=== PATIENT | male | born 2000 | race Two or more races ===

== ENCOUNTER 2023-09-10 16:47 | Inpatient (IN) | payer SELFPAY ==
[~2023-09-10] VITALS: Ht 170.2 cm; Wt 72.3 kg
[2023-09-10 18:19] LABS: Basophils # (auto) 0 10 ^3/uL (0-0.2); Basophils % (auto) 0.3 % (0.0-2.0); Eosinophils # (auto) 0.1 10 ^3/uL (0-0.8); Eosinophils % (auto) 0.7 % (0.0-7.0); Hematocrit 45.8 % (41.0-53.0); Hemoglobin 15.2 g/dL (13.5-17.5); Lymphocytes # (auto) 1.5 10 ^3/uL (0.4-5.4); Lymphocytes % (auto) 11.7 % (10.0-50.0); Mean Corpuscular Hemoglobin 28.4 pg (28.0-32.0); Mean Corpuscular Hgb Conc. 33.2 g/dL (32.0-36.0); Mean Corpuscular Volume 85.6 fL (80.0-100.0); Monocytes # (auto) 1.1 10 ^3/uL (0-1.3); Monocytes % (auto) 9.1 % (0.0-12.0); Neutrophils # (auto) 9.8 10 ^3/uL (1.6-8.6); Neutrophils % (auto) 78.2 % (37.0-80.0); Red Blood Cells 5.35 10^6/uL (4.5-5.90); Red Cell Distribution Width 14.1 % (11.8-14.3); White Blood Cell 12.5 10^3/uL (4.4-10.8)
[2023-09-10 18:33] LABS: CRP High Sensitivity 0.17 mg/dL (<1.0)
[2023-09-10 18:35] LABS: Alanine Aminotransferase 72 U/L (7-40); Albumin 4.9 g/dL (3.2-4.8); Alkaline Phosphatase 110 U/L (46-116); Anion Gap 7 (5-15); Aspartate Aminotransferase 29 U/L (13-40); BUN/Creatinine Ratio 9.7 (10.0-20.0); Bilirubin, Total 0.3 mg/dL (0.2-1.0); Blood Urea Nitrogen 12 mg/dL (9-23); Calcium 10.1 mg/dL (8.5-10.1); Carbon Dioxide 29 mmol/L (20-30); Chloride 106 mmol/L (98-107); Glucose 113 mg/dL (74-106); Potassium 3.9 mmol/L (3.5-5.1); Sodium 142 mmol/L (136-145); Total Protein 7.2 g/dL (5.7-8.2)
[2023-09-10] MEDS ORDERED: SODIUM CHLORIDE 0.9% 1,000 ML IV ONE (19:00)
[2023-09-10] MEDS ORDERED: fentaNYL CITRATE 100 MCG/2 ML VL IV ONE (19:30)
[2023-09-10] MEDS ORDERED: TAMSULOSIN HYDROCHLORIDE 0.4 MG CAP PO ONE ×2 (19:30→21:38)
[2023-09-10] MEDS ORDERED: cefTRIAXone 1GM/50ML D5W 50 ML IV ONE ×2 (19:30→21:38)
[2023-09-10 20:16] LABS: Urine Bacteria FEW /hpf (None Seen); Urine Blood 1+ /uL (Negative); Urine Clarity HAZY (Clear); Urine Color Yellow (Yellow); Urine Protein, UAD TRACE (Negative); Urine Specific Gravity 1.027 (1.001-1.035); Urine Urobilinogen Normal (Negative); Urine WBC 9 /hpf (0 - 3)
[2023-09-10 20:24] LABS: Amphetamine Screen, Urine Neg (NEGATIVE); Barbiturate Scree,Urine Neg (NEGATIVE); Benzodiazephine Screen, Urine Neg (NEGATIVE); Cocaine Screen, Urine Neg (NEGATIVE)
[2023-09-10 20:25] LABS: Cannabinoid Screen, Urine Neg (NEGATIVE); Opiate Scree,Urine Neg (NEGATIVE); Phencyclidine Screen, Urine Neg (NEGATIVE)
[2023-09-10 21:27] VITALS: PULSE 64; RESP 20; O2SAT 100
[2023-09-10] MEDS ORDERED: ONDANSETRON HCL 4 MG/2 ML VIAL ONE (21:40)
[2023-09-10] MEDS ORDERED: fentaNYL CITRATE 100 MCG/2 ML VL ONE (21:40)
[2023-09-10] MEDS ORDERED: ONDANSETRON HCL 4 MG/2 ML VIAL IV ONE (21:45)
[2023-09-10] MEDS ORDERED: KETOROLAC TROMETH 30 MG/ML 1ML VIAL IV ONE (22:00)
[2023-09-10] MEDS ORDERED: ACETAMINOPHEN 325 MG TAB PO PRN (22:45)
[2023-09-10] MEDS ORDERED: DOCUSATE SOD 100 MG CAP PO PRN (22:45)
[2023-09-10] MEDS ORDERED: KETOROLAC TROMETH 30 MG/ML 1ML VIAL ONE (22:45)
[2023-09-10] MEDS ORDERED: HYDROcodone-ACET 5/325MG TAB PO PRN (22:45)
[2023-09-10] MEDS ORDERED: ONDANSETRON HCL 4 MG/2 ML VIAL IV PRN (22:45)
[2023-09-10] MEDS ORDERED: MORPHINE SULFATE INJ 2 MG/ml SYRG IV PRN (22:45)
[2023-09-11] VITALS (7 sets, daily range): BP systolic 107–116; BP diastolic 57–65; PULSE 78–95; RESP 16–24; TEMP 97.7–98.4; O2SAT 96–100
[2023-09-11] MEDS ORDERED: HYDROcodone-ACET 5/325MG TAB ONE (02:09)
[2023-09-11] MEDS: SODIUM CHLOR 0.9% PF (SALINE LOCK) 10ML VIAL/SYR IV SCH ×3 (06:01→22:00)
[2023-09-11] MEDS: TAMSULOSIN HYDROCHLORIDE 0.4 MG CAP PO SCH (10:20)
[2023-09-11 11:33] LABS: Basophils # (auto) 0 10 ^3/uL (0-0.2); Basophils % (auto) 0.4 % (0.0-2.0); Eosinophils # (auto) 0.1 10 ^3/uL (0-0.8); Eosinophils % (auto) 0.8 % (0.0-7.0); Hematocrit 43.2 % (41.0-53.0); Hemoglobin 14.5 g/dL (13.5-17.5); Lymphocytes # (auto) 1.8 10 ^3/uL (0.4-5.4); Mean Corpuscular Hemoglobin 28.6 pg (28.0-32.0); Mean Corpuscular Hgb Conc. 33.6 g/dL (32.0-36.0); Mean Corpuscular Volume 85.3 fL (80.0-100.0); Monocytes % (auto) 14.5 % (0.0-12.0); Neutrophils # (auto) 4.2 10 ^3/uL (1.6-8.6); Neutrophils % (auto) 59.3 % (37.0-80.0); Nucleated Red Blood Cells % 0.1 %; Red Blood Cells 5.07 10^6/uL (4.5-5.90)
[2023-09-11] MEDS: cefTRIAXone 1GM/50ML D5W 50 ML IV SCH (11:35)
[2023-09-11 11:55] LABS: Chloride 107 mmol/L (98-107); Potassium 3.6 mmol/L (3.5-5.1); Sodium 142 mmol/L (136-145)
[2023-09-11 11:56] LABS: Anion Gap 6 (5-15); Carbon Dioxide 29 mmol/L (20-30)
[2023-09-11 11:57] LABS: Calcium 9.6 mg/dL (8.5-10.1)
[2023-09-11 12:01] LABS: Glucose 89 mg/dL (74-106); Triglycerides 72 mg/dL (< 150)
[2023-09-11 12:02] LABS: Blood Urea Nitrogen 10 mg/dL (9-23); LDL Cholesterol 68 mg/dL (< 100)
[2023-09-11 12:03] LABS: Cholesterol 121 mg/dL (< 200); HDL Cholesterol 48 mg/dL (40-59)
[2023-09-11] MEDS: SODIUM CHLORIDE 0.9% 1,000 ML IV SCH (19:00)
[2023-09-12 05:43] VITALS: BP 110/65; PULSE 79; RESP 17; TEMP 98.3; O2SAT 99
[2023-09-12] MEDS: SODIUM CHLOR 0.9% PF (SALINE LOCK) 10ML VIAL/SYR IV SCH ×3 (06:25→22:00)
[2023-09-12 07:26] LABS: Basophils # (auto) 0 10 ^3/uL (0-0.2); Basophils % (auto) 0.6 % (0.0-2.0); Eosinophils # (auto) 0 10 ^3/uL (0-0.8); Eosinophils % (auto) 0.6 % (0.0-7.0); Hematocrit 41.7 % (41.0-53.0); Lymphocytes # (auto) 1.1 10 ^3/uL (0.4-5.4); Lymphocytes % (auto) 14.3 % (10.0-50.0); Mean Corpuscular Hemoglobin 28.7 pg (28.0-32.0); Mean Corpuscular Hgb Conc. 33.6 g/dL (32.0-36.0); Mean Corpuscular Volume 85.4 fL (80.0-100.0); Monocytes # (auto) 0.7 10 ^3/uL (0-1.3); Monocytes % (auto) 9.5 % (0.0-12.0); Neutrophils # (auto) 5.8 10 ^3/uL (1.6-8.6); Red Blood Cells 4.89 10^6/uL (4.5-5.90); Red Cell Distribution Width 14.2 % (11.8-14.3); White Blood Cell 7.8 10^3/uL (4.4-10.8)
[2023-09-12 07:40] LABS: Chloride 109 mmol/L (98-107); Potassium 4.4 mmol/L (3.5-5.1); Sodium 143 mmol/L (136-145)
[2023-09-12 07:41] LABS: Anion Gap 8 (5-15); Calcium 9.5 mg/dL (8.5-10.1); Carbon Dioxide 26 mmol/L (20-30)
[2023-09-12 07:46] LABS: BUN/Creatinine Ratio 13.3 (10.0-20.0); Blood Urea Nitrogen 11 mg/dL (9-23); Glucose 81 mg/dL (74-106)
[2023-09-12] MEDS: SODIUM CHLORIDE 0.9% 1,000 ML IV SCH (07:50)
[2023-09-12 08:30] VITALS: BP 112/67; PULSE 86; RESP 16; TEMP 98
[2023-09-12] MEDS ORDERED: cefTRIAXone 1GM/50ML D5W 50 ML IV ONE (08:52)
[2023-09-12 09:00] VITALS: BP 112/67; PULSE 86; RESP 16; TEMP 98; O2SAT 100
[2023-09-12] MEDS: cefTRIAXone 1GM/50ML D5W 50 ML IV SCH (09:09)
[2023-09-12] MEDS ORDERED: TAMSULOSIN HYDROCHLORIDE 0.4 MG CAP PO ONE (10:49)
[2023-09-12] MEDS: TAMSULOSIN HYDROCHLORIDE 0.4 MG CAP PO SCH (10:51)
[2023-09-12 13:00] VITALS: BP 119/65; PULSE 83; RESP 20; TEMP 98.6; O2SAT 99
[2023-09-12 17:00] VITALS: BP 118/69; PULSE 80; RESP 16; TEMP 98.5; O2SAT 100
[2023-09-12 22:00] VITALS: BP 107/55; PULSE 80; RESP 17; TEMP 98.4; O2SAT 97
[2023-09-13 05:00] VITALS: BP 107/66; PULSE 78; RESP 15; TEMP 98.1; O2SAT 98
[2023-09-13 06:26] LABS: Chloride 106 mmol/L (98-107); Potassium 4.5 mmol/L (3.5-5.1); Sodium 138 mmol/L (136-145)
[2023-09-13 06:27] LABS: Anion Gap 3 (5-15); Carbon Dioxide 29 mmol/L (20-30)
[2023-09-13 06:32] LABS: Glucose 92 mg/dL (74-106)
[2023-09-13 06:33] LABS: BUN/Creatinine Ratio 8.4 (10.0-20.0); Blood Urea Nitrogen 8 mg/dL (9-23)
[2023-09-13 06:34] LABS: Basophils # (auto) 0.1 10 ^3/uL (0-0.2); Basophils % (auto) 1.1 % (0.0-2.0); Eosinophils # (auto) 0.1 10 ^3/uL (0-0.8); Eosinophils % (auto) 2.3 % (0.0-7.0); Hematocrit 42.6 % (41.0-53.0); Hemoglobin 14.4 g/dL (13.5-17.5); Lymphocytes # (auto) 1.4 10 ^3/uL (0.4-5.4); Lymphocytes % (auto) 29.1 % (10.0-50.0); Mean Corpuscular Hemoglobin 28.7 pg (28.0-32.0); Mean Corpuscular Hgb Conc. 33.9 g/dL (32.0-36.0); Mean Corpuscular Volume 84.7 fL (80.0-100.0); Monocytes # (auto) 0.8 10 ^3/uL (0-1.3); Monocytes % (auto) 15.6 % (0.0-12.0); Neutrophils # (auto) 2.5 10 ^3/uL (1.6-8.6); Neutrophils % (auto) 51.9 % (37.0-80.0); Nucleated Red Blood Cells % 0.1 %; Red Blood Cells 5.04 10^6/uL (4.5-5.90); Red Cell Distribution Width 13.9 % (11.8-14.3); White Blood Cell 4.9 10^3/uL (4.4-10.8)
[2023-09-13] MEDS: SODIUM CHLOR 0.9% PF (SALINE LOCK) 10ML VIAL/SYR IV SCH ×2 (06:56→09:31)
[2023-09-13 08:30] VITALS: BP 106/67; PULSE 64; RESP 16; TEMP 97.7
[2023-09-13] MEDS ORDERED: TAMS-35 PO (08:43)
[2023-09-13 09:00] VITALS: BP 106/67; PULSE 64; RESP 16; TEMP 97.7; O2SAT 92
[2023-09-13] MEDS: cefTRIAXone 1GM/50ML D5W 50 ML IV SCH (09:30)
[2023-09-13] MEDS: TAMSULOSIN HYDROCHLORIDE 0.4 MG CAP PO SCH (09:30)
[2023-09-13 09:39] VITALS: BP 111/63; PULSE 88; RESP 18; TEMP 99.1; O2SAT 100
[2023-09-13 13:00] VITALS: BP 105/62; PULSE 56; RESP 16; TEMP 97.2; TEMP 97.6; O2SAT 97
== END 2023-09-13 13:02 | disposition home or self-care (01) | DRG 690 ==
LOC: ER 16:47 → OVERFLOW 22:34 → WEST WING 09-11 11:31
PROVIDERS: ADMIT Internal Medicine; ATTEND Internal Medicine
DX: N13.6 Pyonephrosis (principal); D72.829 Elevated white blood cell count, unspecified
CPT/HCPCS: 36415; 74176; 80048; 80053; 80061; 80307; 81001; 83036; 83605; 83690; 84439; 84443; 85025; 86141; 93005; 96365; 96375; G0378; J1885; J2405